=== PATIENT | male | born 1995 | race Caucasian/White ===

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

== ENCOUNTER 2018-07-17 00:08 | Emergency (ER) | payer SELFPAY ==
[2018-07-17 00:11] VITALS: BP 115/88
[2018-07-17] MEDS ORDERED: IPRATROPIUM/ALBUTEROL 3 ML DEYVIAL ONE (00:15)
[2018-07-17] MEDS ORDERED: IPRATROPIUM/ALBUTEROL 3 ML DEYVIAL IH ONE (00:17)
[2018-07-17] MEDS ORDERED: predniSONE 20 MG TAB PO ONE (00:19)
[2018-07-17] MEDS ORDERED: ALBUTEROL 3 ML DEYVIAL IH ONE (00:54)
--- NOTE | 2018-07-17 00:54 | EDPHY ---
H & P Stated Complaint: asthma, cough Time Seen by Provider: 07/17/18 00:16 HPI/ROS: HPI The patient presents with shortness of breath, wheezing, cough which has been present for the last several weeks though became worse tonight. The patient has a history of childhood asthma and this year was diagnosed with allergic rhinitis. He was started a few weeks ago on albuterol and antihistamine. He has run out of his antihistamine. Over the last several days he has had clear rhinorrhea, coughing and mild shortness of breath. Today he was able to go skiing without any difficulty, however symptoms were worse tonight. He believes his asthma triggers seasonal allergies. He has not had an asthma exacerbation and many years. He had childhood asthma, though was never intubated or admitted.. REVIEW OF SYSTEMS 10 systems were reviewed and negative with the exception of the elements mentioned in the history of present illness. PMHx: Asthma, allergic rhinitis Soc Hx: College student PHYSICAL General Appearance: Alert, no distress Eyes: Pupils equal and round no pallor or injection ENT, Mouth: Mucous membranes moist Respiratory: There are no retractions, prolonged I to E time with expiratory wheezes in all lung mejia Cardiovascular: Regular rate and rhythm Gastrointestinal: Abdomen is soft and non-tender, no masses, bowel sounds normal Neurological: A&O, moves all extremities Skin: Warm and dry, no rashes Musculoskeletal: Neck is supple non tender Extremities: symmetrical, full range of motion Psychiatric: Patient is oriented X 3, there is no agitation Source: Patient Exam Limitations: No limitations - Personal History Current Tetanus/Diphtheria Vaccine: Yes - Medical/Surgical History Hx Asthma: No Hx Chronic Respiratory Disease: No Hx Diabetes: No Hx Cardiac Disease: No Hx Renal Disease: No Hx Cirrhosis: No Hx Alcoholism: No Hx HIV/AIDS: No Hx Splenectomy or Spleen Trauma: No Other PMH: tonsillectomy, asthma - Social History Smoking Status: Current every day smoker Constitutional: Initial Vital Signs Temperature (C) 36.6 C 07/17/18 00:09 Heart Rate 104 H 07/17/18 00:09 Respiratory Rate 26 H 07/17/18 00:09 Blood Pressure 115/88 H 07/17/18 00:09 O2 Sat (%) 87 L 07/17/18 00:09 O2 Delivery Mode Room Air O2 (L/minute) 2 Allergies/Adverse Reactions: No Known Allergies Allergy (Verified 06/23/16 19:06) Home Medications: Medication Instructions Recorded Adderall 10 MG (*) 06/23/16 predniSONE [Prednisone] 40 mg PO DAILY 4 Days tablet 07/17/18 Medical Decision Making - Diagnostics Imaging Results: Chest x-ray two views demonstrates bilateral streaky infiltrates consistent with peribronchial thickening, interpreted by me, radiology interpretation is pending. Imaging: I viewed and interpreted images myself Differential Diagnosis: 22-year-old male presents from home with several weeks of progressive shortness of breath, wheezing, cough, rhinorrhea. Here, he is hypoxic, has expiratory wheezes throughout all lung mejia. Suspect asthma exacerbation. Here, he received a DuoNeb and prednisone initially with some improvement in his symptoms. He still had expiratory wheezes, thus he was given an hour long albuterol nebulizer treatment with much improvement in his symptoms. Oxygen saturations were about 94%. He was feeling better. I will discharge him home with albuterol, prednisone and instructions to continue taking his antihistamine. He is happy with this plan. Differential diagnoses considered include asthma exacerbation, pneumonia, pneumothorax. - Data Points Medications Given: Discontinued Medications Albuterol (Proventil Neb) 5 ml IH CONT ONE Stop: 07/17/18 00:55 Last Admin: 07/17/18 01:15 Dose: 5 ml Albuterol Sulfate (Proventil Inh Prepack) 1 mdi TAKEHOME EDNOW ONE Stop: 07/17/18 01:51 Last Admin: 07/17/18 02:41 Dose: 1 mdi Albuterol/Ipratropium (Duoneb) 3 ml IH EDNOW ONE Stop: 07/17/18 00:18 Last Admin: 07/17/18 00:18 Dose: 3 ml Prednisone (Prednisone) 40 mg PO EDNOW ONE Stop: 07/17/18 00:20 Last Admin: 07/17/18 00:26 Dose: 40 mg Departure - Departure Disposition: Home, Routine, Self-Care Clinical Impression: Exacerbation of asthma Qualifiers: Asthma severity: moderate Asthma persistence: persistent Qualified Code(s): J45.41 - Moderate persistent asthma with (acute) exacerbation Condition: Good Instructions: Albuterol (By breathing), Asthma (ED), How to Use a Metered-Dose Inhaler and a Spacer (ED) Referrals: [facility] Wright,. [Clinic] - As per Instructions Prescriptions: predniSONE [Prednisone] 40 mg PO DAILY 4 Days tablet
[2018-07-17] MEDS ORDERED: ALBUTEROL INH PREPACK MDI TAKEHOME ONE (01:50)
== END 2018-07-17 02:44 | disposition home or self-care (01) ==
DX: J45.41 Moderate persistent asthma with (acute) exacerbation (principal); F17.200 Nicotine dependence, unspecified, uncomplicated
CPT/HCPCS: J7512; J7613